=== PATIENT | female | born 1970 | race Caucasian/White ===

== ENCOUNTER 2024-01-24 15:47 | Outpatient (CLI) | payer BC | END 2024-01-24 23:59 | disposition home or self-care (01) | LOC: MRI 15:47 | PROVIDERS: ATTEND Physician Assistant Surgical | DX: M48.02 Spinal stenosis, cervical region (principal); M25.78 Osteophyte, vertebrae; M54.12 Radiculopathy, cervical region; M54.2 Cervicalgia | CPT/HCPCS: 72141 ==

== ENCOUNTER 2024-05-06 08:51 | Emergency (ER) | payer BC ==
[~2024-05-06] VITALS: Ht 157.5 cm; Wt 64.7 kg
[2024-05-06] MEDS: ketorolac trometh 15mg/ml vial 15 MG/ML ML IM ONE (09:47)
[2024-05-06] MEDS ORDERED: METH-798 PO (10:42)
[2024-05-06] MEDS ORDERED: NAPR-996 PO (10:42)
[2024-05-06 10:47] VITALS: BP 136/100; PULSE 119; RESP 17; TEMP 98; O2SAT 97
== END 2024-05-06 10:49 | disposition home or self-care (01) ==
LOC: ER 08:51
DX: M54.59 Other low back pain (principal)
CPT/HCPCS: 72100; 96372; 99283; J1885